=== PATIENT | female | born 1945 | race Caucasian/White ===

== ENCOUNTER 2024-10-29 07:14 | Inpatient (IN) | payer MEDICARE ==
[~2024-10-29] VITALS: Ht 165.1 cm; Wt 71.7 kg
[2024-10-29] MEDS ORDERED: Ipratropium/Albuterol SulF 2.5-0.5MG/3 ML Amp INH ONE (07:30)
[2024-10-29] MEDS ORDERED: Albuterol 2.5 MG/3 ML VIAL INH SCH (07:30)
[2024-10-29 07:49] LABS: BASOPHILS ABSOLUTE AUTO 0.04 K/mm3 (0.00-0.23); BASOPHILS PERCENT AUTO 0 % (0-2); EOSINOPHILS ABSOLUTE AUTO 0.24 K/mm3 (0.00-0.68); EOSINOPHILS PERCENT AUTO 2 % (0-6); Hematocrit 39.6 % (33.0-51.0); IMMATURE GRAN ABSOLUTE AUTO 0.08 K/mm3 (0.00-0.10); IMMATURE GRAN PERCENT AUTO 1 % (0-1); LYMPHOCYTES ABSOLUTE AUTO 3.03 K/mm3 (0.84-5.20); LYMPHOCYTES PERCENT AUTO 23 % (21-46); MONOCYTES ABSOLUTE AUTO 0.75 K/mm3 (0.16-1.47); MONOCYTES PERCENT AUTO 6 % (4-13); Mean Corpuscular HGB 31.5 pg (26.0-34.0); Mean Corpuscular HGB Conc 32.8 g/dL (31.5-36.5); Mean Corpuscular Volume 96 fL (80-100); Mean Platelet Volume 10.3 fL (9.1-12.4); NEUTROPHILS ABSOLUTE AUTO 9.11 K/mm3 (1.96-9.15); NEUTROPHILS PERCENT AUTO 69 % (41-73); Platelet Count 232 K/mm3 (150-400); RDW Coefficient Variation 13.4 % (11.7-14.2); RDW Standard Deviation 47.5 fL (35.1-46.3); Red Blood Cell Count 4.13 M/mm3 (3.80-5.20); White Blood Cell Count 13.25 K/mm3 (4.00-11.30)
[2024-10-29 08:10] LABS: Magnesium, Blood 2.2 mg/dL (1.6-2.4)
[2024-10-29 08:11] LABS: Albumin, Blood 3.4 g/dL (3.4-5.0); Albumin/Globulin Ratio 0.9 (0.8-1.8); Bilirubin, Total 1.5 mg/dL (0.1-1.0); Bun/Creatinine Ratio 13.8 (12.0-20.0); Calcium, Blood 8.9 mg/dL (8.5-10.1); Creatinine, Blood 0.94 mg/dL (0.40-1.00); Globulin, Blood 3.7 g/dL (2.2-4.0); Potassium, Blood 2.6 mmol/L (3.5-5.5); Total Protein, Blood 7.1 g/dL (6.4-8.2)
[2024-10-29] MEDS ORDERED: NS 500 ML IV SCH (08:15)
[2024-10-29] MEDS ORDERED: Azithromycin 500 MG in NS 250 ML IV ONE (08:25)
[2024-10-29] MEDS ORDERED: CefTRIAXone Sodium 1,000 MG in NS 50 ML IV ONE (08:25)
[2024-10-29 08:32] LABS: Influenza A, PCR NEGATIVE (NEGATIVE); Influenza B, PCR NEGATIVE (NEGATIVE); Resp Syncytial Virus, PCR NEGATIVE (NEGATIVE); SARS-Cov-2 (COVID-19) PCR, MMC NEGATIVE (NEGATIVE)
[2024-10-29] MEDS ORDERED: Furosemide 10 MG / ML 2ML Vial IV ONE (09:20)
[2024-10-29] MEDS ORDERED: Potassium Chl 20MEQ/Water100ML 100 ML IV SCH (09:20)
[2024-10-29] MEDS ORDERED: Lidocaine 4% 1 Patch TOP ONE (10:05)
[2024-10-29] MEDS ORDERED: Ipratropium/Albuterol SulF 2.5-0.5MG/3 ML Amp INH SCH (10:50)
[2024-10-29] MEDS ORDERED: Magnesium Sulf 2 GM/Water 50ML 50 ML IV ONE (10:55)
[2024-10-29 12:28] LABS: Anti-Xa UFH, PHA Monitoring <0.10 IU/mL; International Normalized Ratio 1.05; Prothrombin Time Results 11.5 Sec (9.7-11.5)
[2024-10-29 13:03] VITALS: BP 134/58
[2024-10-29] MEDS ORDERED: NS 250 ML IV PRN (13:40)
[2024-10-29] MEDS ORDERED: Heparin Sodium,Porcine 5,000 UNIT/0.5 ML SDV SC SCH (14:00)
[2024-10-29 15:12] VITALS: BP 109/70
[2024-10-29] MEDS ORDERED: ENTRESTO 49 MG1 EACH PO (15:59)
[2024-10-29] MEDS ORDERED: ATOR40TA PO (15:59)
[2024-10-29] MEDS ORDERED: TORS10 PO (15:59)
[2024-10-29 16:57] LABS: Bun/Creatinine Ratio 14.7 (12.0-20.0); Calcium, Blood 8.6 mg/dL (8.5-10.1); Creatinine, Blood 0.81 mg/dL (0.40-1.00); Potassium, Blood 2.7 mmol/L (3.5-5.5)
[2024-10-29 16:59] VITALS: BP 94/59
[2024-10-29] MEDS ORDERED: ESCI10 PO (17:04)
[2024-10-29] MEDS ORDERED: Potassium Chloride 20 MEQ TabCR PO ONE (17:20)
--- NOTE | 2024-10-29 17:26 | NUR ---
SHIFT SUMMARY. SHIFT HAS GONE WELL OVERALL. PT AOX4, PLEASANT, COOPERATIVE, ABLE TO MAKE NEEDS KNOWN. ADMITTED WITH ACUTE HYPOXIC RESPIRATORY FAILURE. ARRIVED ON UNIT ON AIRVO, 40 L O2 @ 21% FIO2. SINCE THAT TIME, HAS BEEN ABLE TO BE TITRATED DOWN TO ROOM AIR WITH O2 SATS SITTING AT 95 % AT THIS TIME. HAS BEEN RUNNING SINUS ON TELE. POTASSIUM RUNNING THROUGH IV SINCE ARRIVAL, AFTER SECOND BAG WAS FINISHED INFUSING, PT REQUESTED TO SWITCH TO ORAL D/T PAIN R/T IV. PER RIVER OKAY TO SWITCH TO 40 MEQ PO KCL OPPOSED TO IV WITH BLOOD POTASSIUM MOST RECENTLY AT 2.8. HAS DENIED PAIN SINCE ARRIVAL OUTSIDE OF POSITIONAL WHICH IS ALLEVIATED WITH REPOSITIONING. VITALS STABLE OUTSIDE OF SOFT BP AT TIMES. MAP HAS REMAINED >65 THUS FAR. ADMISSION PROCESS COMPLETED PER PROTOCOL. LACTIC AND TROPS HAVE BOTH GONE UP SINCE ARRIVAL TO UNIT. DISCUSSED WITH DR. HICKMAN AND DR. HOLMAN, BOTH AWARE. SHIFT OTHERWISE UNREMARKABLE. BED LOCKED IN LOWEST POSITION. CALL LIGHT LEFT WITHIN REACH. CONTINUING TO MONITR.
[2024-10-29] MEDS ORDERED: Furosemide 10 MG / ML 2ML Vial IV SCH (18:00)
--- NOTE | 2024-10-29 18:42 | NUR ---
CALL TO DR. HOLMAN. WANTED TO TOUCH BASE REGARDING 1800 LASIX AND MOST RECENT LACTIC ACID. INFORMED THAT WE ENDED UP HOLDING 1800 LASIX D/T SOFT BP, MAP REMAINS >65. DISCUSSED MOST RECENT LACTIC ACID OF 5.[address] HOLMAN AWARE, HAS SPOKEN WITH DR. HICKMAN REGARDING, NO FURTHER ORDERS AT THIS TIME. CONTINUING TO MONITOR.
[2024-10-29 19:20] VITALS: BP 95/68
[2024-10-29] MEDS ORDERED: Lidocaine 4% 1 Patch TOP SCH (21:00)
[2024-10-29] MEDS ORDERED: HyDROXyzine HCl 25 MG Tab PO SCH (21:00)
[2024-10-29 22:15] LABS: Calcium, Blood 8.4 mg/dL (8.5-10.1); Creatinine, Blood 1.08 mg/dL (0.40-1.00)
[2024-10-29 22:59] VITALS: BP 136/78
[2024-10-30] VITALS (7 sets, daily range): BP systolic 101–125; BP diastolic 67–79
[2024-10-30 04:08] LABS: BASOPHILS ABSOLUTE AUTO 0.01 K/mm3 (0.00-0.23); BASOPHILS PERCENT AUTO 0 % (0-2); EOSINOPHILS PERCENT AUTO 0 % (0-6); Hematocrit 33.9 % (33.0-51.0); Hemoglobin 11.2 g/dL (11.5-16.0); IMMATURE GRAN ABSOLUTE AUTO 0.12 K/mm3 (0.00-0.10); IMMATURE GRAN PERCENT AUTO 1 % (0-1); LYMPHOCYTES ABSOLUTE AUTO 1.43 K/mm3 (0.84-5.20); LYMPHOCYTES PERCENT AUTO 9 % (21-46); MONOCYTES ABSOLUTE AUTO 0.62 K/mm3 (0.16-1.47); MONOCYTES PERCENT AUTO 4 % (4-13); Mean Corpuscular HGB 31.9 pg (26.0-34.0); Mean Corpuscular Volume 97 fL (80-100); Mean Platelet Volume 10.9 fL (9.1-12.4); NEUTROPHILS ABSOLUTE AUTO 13.07 K/mm3 (1.96-9.15); NEUTROPHILS PERCENT AUTO 86 % (41-73); Platelet Count 190 K/mm3 (150-400); RDW Coefficient Variation 13.8 % (11.7-14.2); RDW Standard Deviation 48.9 fL (35.1-46.3); Red Blood Cell Count 3.51 M/mm3 (3.80-5.20); White Blood Cell Count 15.25 K/mm3 (4.00-11.30)
[2024-10-30] MEDS ORDERED: Benzonatate 100 MG Cap PO PRN (04:15)
[2024-10-30] MEDS ORDERED: Ondansetron 4 MG SoluTab MM PRN (04:15)
[2024-10-30 05:12] LABS: Albumin, Blood 3.3 g/dL (3.4-5.0); Bilirubin, Total 0.9 mg/dL (0.1-1.0); Bun/Creatinine Ratio 14.2 (12.0-20.0); Calcium, Blood 8.4 mg/dL (8.5-10.1); Creatinine, Blood 0.85 mg/dL (0.40-1.00); Globulin, Blood 3.4 g/dL (2.2-4.0); Magnesium, Blood 2.3 mg/dL (1.6-2.4); Potassium, Blood 3.2 mmol/L (3.5-5.5); Total Protein, Blood 6.7 g/dL (6.4-8.2)
--- NOTE | 2024-10-30 05:28 | NUR ---
SHIFT SUMMARY PT AXO X 4. PT WITH ONE EPISODES OF PERSISTENT COUGING CAUSING HER TO HAVE AN EMESIS. TESSALON KEN AND ZOFRAN GIVEN WITH GOOD EFFECT. PT REMAIN ON RA THROUGHOUT THE NIGHT. DENIES SOB. PT NSRR WITH BBB HR 80S. PT UP IND TO BEDSIDE COMMODE WITH GOOD URINE OUTPUT. -BM. VSS. LIDOCAINE PATCH APPLIED FOR CHRONIC BACK PAIN. POTASSIUM IMPROVING.
[2024-10-30] MEDS ORDERED: Potassium Chloride 40 MEQ in NS 250 ML IV STA (06:23)
[2024-10-30] MEDS ORDERED: Potassium Chloride 20 MEQ TabCR PO ONE ×2 (06:55→07:05)
[2024-10-30] MEDS ORDERED: Melatonin 3 MG Tab PO PRN (07:05)
[2024-10-30] MEDS ORDERED: Promethazine HCl 25 MG Tab PO PRN (07:05)
--- NOTE | 2024-10-30 07:17 | NUR ---
PATIENT UNABLE TO TOLERATE IV POTASSIUM CAUSING BURNING EVEN AT SLOWER RATE. POTASSIUM STOPPED. MD ALICE NOTIFIED. 40MEQ ORAL POTASSIUM ORDERED FOR REPLACEMENT. PATIENT MADE AWARE. NO CONCERNS AT THIS TIME.
--- NOTE | 2024-10-30 07:33 | NUR ---
am note this rn assumed care at 0700. vital signs stable. tele sinus rhythm 90s. patient is alert and oriented x4. neuro is intact. perrla. patient is able to make needs known and uses call light appropriately. patient denies chest pain/pressure, pain, or shortness of breath. see shift assessment for further detials. Md Chadwick and Mohini in to see patient to discuss plan of care. this rn at bedside for md león. Plan to switch to medical status with tele.
[2024-10-30] MEDS ORDERED: Potassium Chloride 20 MEQ/15 ML UDC PO ONE (08:30)
[2024-10-30] MEDS ORDERED: Citalopram Hydrobromide 20 MG Tab PO SCH (09:00)
[2024-10-30] MEDS ORDERED: Atorvastatin 40 MG Tab PO SCH (09:00)
[2024-10-30] MEDS ORDERED: Doxycycline Hyclate 100 MG TAB PO SCH (09:00)
[2024-10-30] MEDS ORDERED: Spironolactone 12.5 MG TAB PO SCH (09:00)
[2024-10-30] MEDS ORDERED: MethylPREDNISolone Sod Succ 125 MG Vial IV SCH (09:00)
[2024-10-30] MEDS ORDERED: Sacubitril/Valsartan 49 MG/51 MG Tab PO SCH ×2 (09:00→21:00)
[2024-10-30] MEDS ORDERED: Azithromycin 500 MG in NS 250 ML IV SCH (09:00)
[2024-10-30] MEDS ORDERED: Empagliflozin 10 MG TAB PO SCH (09:00)
[2024-10-30] MEDS ORDERED: CefTRIAXone Sodium 1,000 MG in NS 100 ML IV SCH (09:00)
[2024-10-30] MEDS ORDERED: Enoxaparin 40 MG/0.4 ML SYR SC SCH (13:00)
[2024-10-30] MEDS ORDERED: Ipratropium/Albuterol SulF 2.5-0.5MG/3 ML Amp INH PRN (13:40)
--- NOTE | 2024-10-30 14:52 | NUR ---
prolonged qtc tele called this rn to notify of prolonged qtc and this rn called md to notify. plan to continue to monitor
[2024-10-30] MEDS ORDERED: Magnesium Sulf 2 GM/Water 50ML 50 ML IV STA (14:58)
--- NOTE | 2024-10-30 17:37 | NUR ---
shift summary vital signs remain stable. tele sinus rhythm 90s. patient receivec iv magnesium this afternoon and tolerating well. no acute changes. patient independent in the room and adls. no acute changes this shift. plan remains up to date
--- NOTE | 2024-10-30 19:30 | NUR ---
ASSUMPTION OF CARE ASSUMED PT'S CARE AT 1900,PT IN BED, WIDE AWAKE WATCHING TV.BEDSIDE REPORT COMPLETED.PLAN OF CARE REVIEWED.PT ON RA,DENIES SOB,DENIES PAIN,DENIES NEEDS.CALL LIGHT AND PT'S ITEMS WITHIN REACH.MONITORING ONGOING PER CARE PLAN.
--- NOTE | 2024-10-30 22:37 | NUR ---
ASSUMPTION OF CARE PATIENT ARRIVED TO THE FLOOR AT APPROX 2130 VIA WHEELCHAIR. A/O X4. INDEPENDENT TRANSFER TO THE BED. VITAL SIGNS OBTAINED AND WITHIN NORMAL LIMITS. NO COMPLAINTS OF CHEST PAIN, PRESSURE, OR SOB. TELE IN PLACE WITH REPORT OF ST @ 85 WITH BBB. IND TO THE BATHROOM. ASSESSMENT COMPLETE. TESSALON PEARLS GIVEN PER EMAR FOR COUGH. CALL LIGHT WITHIN REACH. BED IN LOWEST POSITION.
[2024-10-31 03:40] VITALS: BP 119/80
[2024-10-31 06:07] LABS: BASOPHILS ABSOLUTE AUTO 0.02 K/mm3 (0.00-0.23); BASOPHILS PERCENT AUTO 0 % (0-2); EOSINOPHILS PERCENT AUTO 0 % (0-6); Hematocrit 33.4 % (33.0-51.0); IMMATURE GRAN ABSOLUTE AUTO 0.21 K/mm3 (0.00-0.10); IMMATURE GRAN PERCENT AUTO 1 % (0-1); LYMPHOCYTES ABSOLUTE AUTO 1.73 K/mm3 (0.84-5.20); LYMPHOCYTES PERCENT AUTO 11 % (21-46); MONOCYTES ABSOLUTE AUTO 0.74 K/mm3 (0.16-1.47); MONOCYTES PERCENT AUTO 5 % (4-13); Mean Corpuscular HGB 31.9 pg (26.0-34.0); Mean Corpuscular HGB Conc 32.9 g/dL (31.5-36.5); Mean Corpuscular Volume 97 fL (80-100); Mean Platelet Volume 10.4 fL (9.1-12.4); NEUTROPHILS ABSOLUTE AUTO 13.05 K/mm3 (1.96-9.15); NEUTROPHILS PERCENT AUTO 83 % (41-73); Platelet Count 209 K/mm3 (150-400); RDW Coefficient Variation 14.3 % (11.7-14.2); RDW Standard Deviation 50.4 fL (35.1-46.3); Red Blood Cell Count 3.45 M/mm3 (3.80-5.20); White Blood Cell Count 15.75 K/mm3 (4.00-11.30)
[2024-10-31 06:30] LABS: Albumin, Blood 3.4 g/dL (3.4-5.0); Bilirubin, Total 0.7 mg/dL (0.1-1.0); Bun/Creatinine Ratio 16.8 (12.0-20.0); Calcium, Blood 8.2 mg/dL (8.5-10.1); Creatinine, Blood 0.89 mg/dL (0.40-1.00); Globulin, Blood 3.3 g/dL (2.2-4.0); Potassium, Blood 3.8 mmol/L (3.5-5.5); Total Protein, Blood 6.7 g/dL (6.4-8.2)
[2024-10-31 07:21] VITALS: BP 127/82
[2024-10-31] MEDS ORDERED: BENZ100A PO (10:38)
[2024-10-31] MEDS ORDERED: DOXY100 PO (10:39)
[2024-10-31] MEDS ORDERED: JARDIANCE10 MG PO (10:39)
[2024-10-31] MEDS ORDERED: PRED20 PO (10:40)
[2024-10-31] MEDS ORDERED: SPIR25 PO (10:41)
[2024-10-31] MEDS ORDERED: ALBU90OI INH (12:09)
--- NOTE | 2024-10-31 12:09 | NUR ---
PT DISCHARGED HOME. DISCHARGE INSTRUCTION DISCUSSED WITH PT. NO QUESTIONS OR CONCERNS AT THIS TIME. MEDICATIONS CALLED IN TO PHARMACY OF CHOICE IN [place].
== END 2024-10-31 13:30 | disposition home or self-care (01) | DRG 291 ==
LOC: ER 07:14 → PCU 10:45 → MEDS 10-30 21:36
PROVIDERS: Registered Nurse; Student in an Organized Health Care Education/Training Program; ADMIT Hospitalist
PROC: 5A0935A Assistance with Respiratory Ventilation, Less than 24 Consecutive Hours, High Flow/Velocity Cannula (ICD-10-PCS; principal; 2024-10-29)
DX: I50.23 Acute on chronic systolic (congestive) heart failure (principal); J96.01 Acute respiratory failure with hypoxia; J44.1 Chronic obstructive pulmonary disease with (acute) exacerbation; E87.21 Acute metabolic acidosis; Z66 Do not resuscitate; F17.210 Nicotine dependence, cigarettes, uncomplicated; E87.6 Hypokalemia; I25.10 Atherosclerotic heart disease of native coronary artery without angina pectoris; R94.31 Abnormal electrocardiogram [ECG] [EKG]; Z87.442 Personal history of urinary calculi; Z86.14 Personal history of Methicillin resistant Staphylococcus aureus infection; Z87.01 Personal history of pneumonia (recurrent); Z90.49 Acquired absence of other specified parts of digestive tract; Z90.710 Acquired absence of both cervix and uterus; Z98.890 Other specified postprocedural states; Z91.012 Allergy to eggs; Z88.6 Allergy status to analgesic agent
CPT/HCPCS: 0241U; 36415; 71045; 71260; 80048; 80053; 83605; 83690; 83735; 83880; 84484; 85025; 85379; 85520; 85610; 85730; 87040; 93005; 93010; 94640; 94644; 94664; 94762; 96365; 96367; 96368; 96375; 99285-25; A9270; J0456; J0696; J1650; J1938; J2919; J3475; J3480; J7050; J7120; Q9967